=== PATIENT | female | born 1985 | race Caucasian/White ===

== ENCOUNTER 2022-05-15 14:37 | Emergency (ER) | payer OTHER | END 2022-05-15 15:48 | disposition home or self-care (01) | LOC: JP.ED 14:37 | DX: N30.00 Acute cystitis without hematuria (principal); E10.9 Type 1 diabetes mellitus without complications; Z88.0 Allergy status to penicillin; Z79.82 Long term (current) use of aspirin | CPT/HCPCS: 81001; 87086; 99282; 99283 ==